=== PATIENT | female | born 1960 | race Caucasian/White ===

== ENCOUNTER 2024-03-21 16:57 | Emergency (ER) | payer BC, SELFPAY ==
--- NOTE | 2024-03-21 17:00 | ED.URI ---
HPI - URI/Sore Throat General Chief Complaint: Upper Respiratory Infection Stated Complaint: sore throat,cough,both ears pain Time Seen by Provider: 03/21/24 17:00 Source: patient Mode of arrival: ambulatory Limitations: no limitations History of Present Illness HPI Narrative: Nidia is a 64-year-old female patient presenting to the clinic today with complaints of sore throat, cough, and bilateral ear pain x2 days. She reports no fever, chills, body aches, shortness of breath, or chest pain. No known sick contacts. MD elicited complaint: cough, sore throat, nasal congestion and other (Bilateral ear pain) Related Data Allergies Allergy/AdvReac Type Severity Reaction Status Date / Time Penicillins Allergy Severe Swelling Verified 03/21/24 17:27 Review of Systems Review of Systems: Pertinent positives per HPI. Patient denies any fever, chills, rash, headache, visual changes, dizziness, shortness of breath, chest pain, palpitations, nausea, vomiting, diarrhea, constipation, abdominal pain, or any urinary issues. PMFSH Comments At the time of my signature, I reviewed and agree with the nursing past medical, surgical, social, and family history. There is no relevant family history pertinent to the patient complaint. Exam Narrative: General: Well-developed, well nourished, in no apparent distress Head: Normocephalic, atraumatic Eyes: Pupils equally round and reactive to light bilaterally, EOM intact, sclera and conjunctive clear, no discharge, lids normal Ears: TMs intact and clear, ear canals clear, no drainage, grossly hearing normal. Nose: Nares patent, clear nasal discharge, no inflammation, no sinus tenderness. Mouth: Oral pharynx without lesions or masses, good dentition, MMM. Postnasal drip Neck: Supple, trachea midline, no enlargement of anterior or posterior cervical nodes, no thyroid masses or goiter palpable. Cardio: Regular rate and rhythm, s1 and s2 normal, no murmur appreciated. Resp: Clear to auscultation bilaterally, no rhonchi, rales, wheezing or rubs Course Course Emergency Course: Portions of this record may have been created with voice recognition software. Level of Care: Express Care Visit Vital Signs Vital signs: Vital Signs Temperature 36.7 C 03/21/24 17:12 Pulse Rate 97 03/21/24 17:12 Respiratory Rate 16 03/21/24 17:12 Blood Pressure 115/62 03/21/24 17:12 Pulse Oximetry 100 03/21/24 17:12 Oxygen Delivery Room Air 03/21/24 17:12 Temperature 36.7 C 03/21/24 17:12 Pulse Rate 97 03/21/24 17:12 Respiratory Rate 16 03/21/24 17:12 Blood Pressure 115/62 03/21/24 17:12 Pulse Oximetry 100 03/21/24 17:12 Oxygen Delivery Room Air 03/21/24 17:12 Vital signs reviewed MDM - URI/Sore Throat MDM Narrative Medical decision making narrative: At the time of visit patient is resting comfortably on the exam table. Patient appears to be nontoxic. Labs: Strep test was performed and was negative in the clinic today. We will send strep for culture. Plan: Patient declined COVID and influenza testing. I suspect patient has URI/pharyngitis/postnasal drip. Supportive measures were discussed with the patient and they voiced understanding discharge instructions and agrees to treatment plan. Return precautions reviewed Differential Diagnosis Differential diagnosis: Likely upper respiratory infection, otitis media, sinusitis, viral infection, bronchitis, influenza, pharyngitis and other (COVID) Discharge Plan Discharge Clinical Impression: Viral infection, Post-nasal drip Upper respiratory infection Qualifiers: URI type: unspecified URI Qualified Code(s): J06.9 - Acute upper respiratory infection, unspecified Pharyngitis Qualifiers: Pharyngitis/tonsillitis etiology: unspecified etiology Qualified Code(s): J02.9 - Acute pharyngitis, unspecified Patient Disposition: Home, Self-Care Condition: Stable Instructions: Antibiotic Form, Pharyngitis (ED), Upper Respiratory Infection (ED), Postnasal Drip (DC) Additional Instructions: You declined COVID and influenza testing in the clinic today. Strep test was negative in the clinic today. We will send for culture if this comes back positive we will contact you and place you on antibiotics at that time No sign of bacterial infection in the clinic today. May take DayQuil/NyQuil for cold/flu symptoms Increase fluids and stay well hydrated Tylenol/motrin for pain/fever Flonase and OTC antihistamines as directed Vicks vapor rub to open sinuses Sinus rinses for congestion Cepacol spray, cough drops, throat lozenges, warm tea with honey/lemon, gargle salt water to soothe throat BRAT diet for diarrhea Clear liquids x 24 hours then advance as tolerated for nausea/vomiting Go to the ED if you develop a worsening in your condition- high fever not controlled by Tylenol or Motrin, dehydration, weakness, lethargy, shortness of breath, or chest pain. Follow up with your PCP in 3-5 days if symptoms persist. Follow-up/Referrals: UNKNOWN,DOCTOR [Primary Care Provider] - Time of Disposition: 17:26 Quality NIHSS Nursing Documentation ED NIHSS nursing documentation: reviewed/agree
[2024-03-21 17:12] VITALS: BP 115/62; PULSE 97; RESP 16; TEMP 36.7; O2SAT 100
[2024-03-21 17:29] LABS: EDSTREPNEGPOS1 Negative (Negative)
== END 2024-03-21 17:38 | disposition home or self-care (01) ==
PROVIDERS: Emergency Provider Nurse Practitioner Family
DX: B34.9 Viral infection, unspecified (principal); R09.82 Postnasal drip; J06.9 Acute upper respiratory infection, unspecified; J02.9 Acute pharyngitis, unspecified; E78.00 Pure hypercholesterolemia, unspecified; I10 Essential (primary) hypertension; E11.9 Type 2 diabetes mellitus without complications; K21.9 Gastro-esophageal reflux disease without esophagitis; M19.90 Unspecified osteoarthritis, unspecified site
CPT/HCPCS: 87081; 87880; 99203; G0463